=== PATIENT | female | born 1990 | race Caucasian/White ===

== ENCOUNTER 2016-11-28 20:34 | Emergency (ER) | payer OTHER ==
[~2016-11-28] VITALS: Ht 154.9 cm; Wt 46.4 kg
[2016-11-28 20:37] VITALS: TEMP 97.7
[2016-11-28] MEDS ORDERED: FLEXERIL 1010 MG/TAB PO (22:15)
[2016-11-28 22:23] VITALS: BP 110/65; PULSE 89
== END 2016-11-28 22:24 | disposition home or self-care (01) ==
LOC: COL.ER 20:34
DX: S16.1XXA Strain of muscle, fascia and tendon at neck level, initial encounter (principal); S63.501A Unspecified sprain of right wrist, initial encounter; S80.212A Abrasion, left knee, initial encounter; S80.211A Abrasion, right knee, initial encounter; V43.62XA Car passenger injured in collision with other type car in traffic accident, initial encounter; Y92.414 Local residential or business street as the place of occurrence of the external cause; R40.2412 Glasgow coma scale score 13-15, at arrival to emergency department

== ENCOUNTER 2016-12-01 20:51 | Emergency (ER) | payer OTHER ==
[~2016-12-01] VITALS: Ht 154.9 cm; Wt 46.4 kg
[~2016-12-01 20:51] MED LIST: FLEXERIL 1010 MG/TAB PO
[2016-12-01 20:57] VITALS: BP 146/68; PULSE 120; TEMP 98.1
[2016-12-01] MEDS ORDERED: DOXYCYCLINE 10100 MG PO (21:25)
== END 2016-12-01 21:34 | disposition home or self-care (01) ==
LOC: COL.ER 20:51
DX: S80.211A Abrasion, right knee, initial encounter (principal); L03.115 Cellulitis of right lower limb; S80.212A Abrasion, left knee, initial encounter; V49.9XXA Car occupant (driver) (passenger) injured in unspecified traffic accident, initial encounter; Y92.410 Unspecified street and highway as the place of occurrence of the external cause